=== PATIENT | female | born 1950 | race African-American/Black ===

== ENCOUNTER → 2020-03-11 | Day surgery (SDC) | payer MEDICARE ==
[2020-03-10 15:32] VITALS: BMI 40.1
[2020-03-11 08:16] VITALS: BP 159/98; TEMP 97.1
--- NOTE | 2020-03-11 09:18 | RAD ---
Lumbar spine myelogram: 03/11/2020 HISTORY: 69-year-old female with a history of lumbar radiculopathy and prior lower lumbar spine surge ry FINDINGS: Informed consent obtained prior to the procedure. [employer] imaging demonstrates a right L5 and S1 pedicle screw with a vertically oriented interlocking ro d. There is significant multilevel facet hypertrophy within the lower lumbar spine, most prominent at the L4-5 and L5-S1 level. There is anterolisthesis of L4 on L5 measuring 4 mm and of L3 on L4 arpit uring approximately 2-3 mm. No acute osseous abnormality. The patient was placed on the fluoroscopic table in the oblique prone position and skin overlying the L3-4 level was anesthetized with 1% buffered lidocaine. With intermittent fluoroscopic guidance, a 20-gauge spinal needle is advanced into the thecal sac and removal of the stylet yields clear cerebro spinal fluid. Subsequently, approximately 12 cc of Isovue 200 was injected, outlining nerve roots of the cauda equina and filling the thecal sac. Needle was removed. Patient tolerated the procedure w ell. Exposure data: 3.6 minutes fluoroscopic time, 1311.3 mcg/sq m IMPRESSION: Successful lumbar spine myelogram as detailed above.
--- NOTE | 2020-03-11 09:49 | CT ---
CT myelogram of the lumbar spine: 03/11/2020 HISTORY: Lumbar radiculopathy, back pain, prior lumbar spine surgery TECHNIQUE: Following the intrathecal administration of iodinated contrast media, axial CT imaging is obtained at 2.5 mm intervals from the lower thoracic spine through the lower sacrum. Coronal and sagittal reformatted imaging obtained. FINDINGS: On the basis of 5 lumbar type vertebral bodies, the conus medullaris terminates at the L1 l evel. There is minimal anterolisthesis at L3-4 measuring approximately 2-3 mm. There is anterolisthesis of L4 on L5 measuring approximately 4 mm. There is an adrenal lesion on the left measuring approximately 1.6 cm with Hounsfield units consisten t with an adrenal adenoma. There are degenerative changes involving bilateral sacroiliac joints. T12-L1: Minimal disc bulge. Significant bilateral facet hypertrophy. No significant central canal or neural foraminal stenosis. L1-2: Bilateral facet hypertrophy and hypertrophy of the ligamentum flavum noted. Mild bilateral neur al foraminal stenosis. No significant central canal stenosis. L2-3: There is prominent bilateral facet hypertrophy and hypertrophy of the ligamentum flavum. There is disc bulge as well. This causes a moderate/severe degree of central canal stenosis and prominent left lateral recess stenosis. There is also severe bilateral neural foraminal stenosis. L3-4: Minimal disc bulge. Prominent bilateral facet hypertrophy and hypertrophy of the ligamentum fla vum. Moderate central canal stenosis and moderate bilateral neural foraminal stenosis. L4-5: There is prominent bilateral facet hypertrophy with hypertrophy of the ligamentum flavum. There is mild disc bulge with a mild/moderate degree of central canal stenosis. Moderate/severe bilateral neural foraminal stenosis, left greater than right. L5-S1: L5 and S1 pedicle screw present on the right with a vertically oriented interlocking thuy. No e vidence for hardware failure is seen. There is disc space narrowing with degenerative endplate change and anterior osteophyte formation and vacuum disc formation. A disc osteophyte complex is pres ent. There is mild central canal stenosis and there is bilateral neural foraminal stenosis, moderate on the right and severe on the left. No worrisome lytic or blastic bone lesion. No acute fracture or evidence of dislocation. IMPRESSION: Significant multilevel degenerative change within the lumbar spine as detailed above.
== END ==
LOC: RAD 07:00 → EDSTATUS 08:00
PROVIDERS: ATTEND Neurological Surgery
PROC: B01B1ZZ Fluoroscopy of Spinal Cord using Low Osmolar Contrast (ICD-10-PCS; principal; 2020-03-11)
DX: M54.16 Radiculopathy, lumbar region (principal); M43.16 Spondylolisthesis, lumbar region; M48.061 Spinal stenosis, lumbar region without neurogenic claudication; E78.5 Hyperlipidemia, unspecified; I10 Essential (primary) hypertension; F32.9 Major depressive disorder, single episode, unspecified; K21.9 Gastro-esophageal reflux disease without esophagitis; M06.9 Rheumatoid arthritis, unspecified; Z79.899 Other long term (current) drug therapy; Z98.1 Arthrodesis status
CPT/HCPCS: 62304; 72132

== ENCOUNTER 2020-05-07 06:51 | Outpatient (CLI) | payer MEDICARE ==
[2020-05-07 11:34] LABS: Hemoglobin 11.6 g/dL (12.0-16.0); Mean Corpuscular HGB CONC 31.8 G/DL (32.0-36.0); Mean Corpuscular Hemoglobin 25.8 PG (27.0-33.0); Mean Corpuscular Volume 81.1 fl (80.0-100.0); Platelet Count 229 10x3/uL (130-400); White Blood Cell (WBC) Count 4.3 10x3/uL (4.5-11.0)
[2020-05-07 12:23] LABS: Anion Gap 14 mmol/L (10-20); BUN (Urea Nitrogen) 15 mg/dL (9.8-20.1); Calc. Creatinine Clearance 0 mL/min (70-130); Calcium 10.1 mg/dL (7.8-10.44); Carbon Dioxide 27 mmol/L (23-31); Chloride 105 mmol/L (98-107); Estimated GFR-MDRD 85; Glucose 98 mg/dL (80-115); Potassium 3.4 mmol/L (3.5-5.1); Sodium 143 mmol/L (136-145)
[2020-05-08 13:41] LABS: SARS-CoV-2 MS2 Positive; SARS-CoV-2 N Gene Negative; SARS-CoV-2 S Gene Negative; SARS-CoV-2 by NAA Not Detected (NotDetected); SARS-CoV-2 orf1ab Negative
--- NOTE | 2020-05-09 20:55 | EKG ---
Test Reason : Blood Pressure : / mmHG Vent. Rate : 069 BPM Atrial Rate : 069 BPM P-R Int : 148 ms QRS Dur : 076 ms QT Int : 414 ms P-R-T Axes : 068 051 022 degrees QTc Int : 443 ms Normal sinus rhythm Normal ECG Confirmed by Mya TAM ([id number]) on 05/09/2020 8:55:11 PM Referred By: DARRELL Confirmed By:Mya TAM
== END 2020-05-07 06:52 | disposition home or self-care (01) ==
LOC: LABBT 06:51
PROVIDERS: ATTEND Neurological Surgery
DX: Z01.818 Encounter for other preprocedural examination (principal); M48.062 Spinal stenosis, lumbar region with neurogenic claudication; Z20.828 Contact with and (suspected) exposure to other viral communicable diseases
CPT/HCPCS: 80048; 85027; 93005; U0003; 87635; 93010

== ENCOUNTER 2020-05-12 05:56 | Observation (INO) | payer MEDICARE ==
[2020-05-12] MEDS ORDERED: Fentanyl 100 MCG/2 ML VIAL ONE (06:33)
[2020-05-12] MEDS ORDERED: Lidocaine 2% Jelly 5 ML TUBE ONE (06:34)
--- NOTE | 2020-05-12 08:22 | OP ---
DATE OF PROCEDURE: 05/12/2020 DAMPENER OPERATOR: Richard. PROCEDURE PERFORMED: L2-L3 laminectomy. DESCRIPTION OF PROCEDURE: The patient intubated. She was rolled in a prone position on gel-filled chest rolls. An incision was made exposing L2 and L3 and the level was confirmed by x-ray. We performed complete L3 and inferior L2 laminectomy and completely decompressed the neural elements bilaterally. The wound was then extensively irrigated. MAC hemostasis was secured. Vancomycin powder was applied and the wound was closed in anatomic layers. Job ID: [id number]
[2020-05-12] MEDS ORDERED: Promethazine HCl 25 MG/ML VIAL SLOW IVP PRN (08:39)
[2020-05-12] MEDS ORDERED: Promethazine HCl 25 MG/ML VIAL IM PRN ×2 (08:39→09:30)
[2020-05-12] MEDS ORDERED: Ondansetron HCl/PF 4 MG/2 ML Vial IVP PRN (08:39)
[2020-05-12] MEDS ORDERED: Ondansetron PF 4 MG/2 ML Vial IM PRN (09:18)
[2020-05-12] MEDS ORDERED: PROPOFOL 200 MG/20 ML VIAL ONE (09:27)
[2020-05-12] MEDS ORDERED: Esmolol 100 MG/10 ML VIAL ONE (09:27)
[2020-05-12] MEDS ORDERED: PHENYLEPHRINE-NS 100 MCG/ML 10 ML SYRINGE ONE (09:27)
[2020-05-12] MEDS ORDERED: ePHEDrine 50 MG/ML VIAL ONE (09:27)
[2020-05-12] MEDS ORDERED: Glycopyrrolate 0.2 MG/ML 5 ML SYRINGE ONE (09:27)
[2020-05-12] MEDS ORDERED: Lidocaine 1% PF 5 ML VIAL ONE (09:27)
[2020-05-12] MEDS ORDERED: Ondansetron PF 4 MG/2 ML Vial ONE (09:27)
[2020-05-12] MEDS ORDERED: Rocuronium Bromide 10 MG/ML (10ML VIAL) ONE (09:27)
[2020-05-12] MEDS ORDERED: Dexamethasone 20 MG/5 ML VIAL ONE (09:27)
[2020-05-12] MEDS ORDERED: diphenhydrAMINE 50 MG/ML VIAL IVP PRN (09:30)
[2020-05-12] MEDS ORDERED: Morphine 2 MG/ML VIAL SLOW IVP PRN (09:30)
[2020-05-12] MEDS ORDERED: Promethazine 25 MG TAB PO PRN (09:30)
[2020-05-12] MEDS ORDERED: Morphine 4 MG/ML VIAL SLOW IVP PRN (09:30)
[2020-05-12] MEDS ORDERED: Milk Of Magnesia 30 ML UDCUP PO PRN (09:30)
[2020-05-12] MEDS ORDERED: Promethazine HCl 12.5 MG SUPP PR PRN (09:30)
[2020-05-12] MEDS ORDERED: Acetaminophen/Codeine 30-300mg Tablet PO PRN (09:30)
[2020-05-12] MEDS ORDERED: tiZANidine HCl 4 MG TAB PO PRN (09:30)
[2020-05-12] MEDS ORDERED: diphenhydrAMINE 25 MG CAP PO PRN (09:30)
[2020-05-12] MEDS ORDERED: Mag-Al 1200 mg/1200 mg/30 ML UDCUP PO PRN (09:30)
[2020-05-12] MEDS ORDERED: traMADol HCl 50 MG TAB PO PRN ×2 (09:30)
[2020-05-12 12:18] VITALS: BMI 38.7
[2020-05-12] MEDS: Sodium Chloride 0.9% 1,000 ML IV SCH ×2 (12:44→21:38)
[2020-05-12] MEDS: Acetaminophen/Codeine 30-300mg Tablet PO PRN (20:41)
[2020-05-12] MEDS ORDERED: Gabapentin 100 MG CAP PO SCH (21:00)
[2020-05-12] MEDS ORDERED: Atorvastatin Calcium 20 MG TAB PO SCH (21:00)
[2020-05-13 03:21] VITALS: BP 117/76; TEMP 98.7
--- NOTE | 2020-05-13 07:20 | DIS ---
DATE OF ADMISSION: 05/12/2020 DATE OF DISCHARGE: 05/13/2020 PROCEDURE: L2-L3 laminectomy. DISCHARGE SUMMARY: The patient is a 69-year-old female, recently evaluated in our office for progressive neurogenic claudication. She was found to have increased lumbar stenosis at L2-L3. She underwent L2-L3 laminectomy on 05/12/2020. Following surgery, she was transitioned to the Med-Surg floor, where her pain has been well controlled with p.o. medications, she is tolerating regular diet, and she is voiding appropriately. She did have some incisional drainage overnight, but there was not active drainage noted on am exam. We will plan to dismiss to home. I have discussed home care precautions. She has been provided scripts for Tylenol 3, tramadol, and Zanaflex. BMP were checked prior to discharge. Job ID: [id number] [facility]
[2020-05-13] MEDS: Acetaminophen/Codeine 30-300mg Tablet PO PRN (08:18)
[2020-05-13] MEDS ORDERED: Triamterene/Hydrochlorothiazide 37.5 mg/25 mg Tablet PO SCH (09:00)
[2020-05-13] MEDS ORDERED: Potassium Chloride 10 MEQ TAB PO SCH (09:00)
[2020-05-13] MEDS ORDERED: Multivit, Therapeutic 1 TAB PO SCH (09:00)
== END 2020-05-13 08:23 | disposition home or self-care (01) ==
LOC: SDC 05:56 → SURG B 09:41
PROVIDERS: ADMIT Neurological Surgery; ATTEND Neurological Surgery
PROC: 01NB0ZZ Release Lumbar Nerve, Open Approach (ICD-10-PCS; principal; 2020-05-12)
DX: M48.062 Spinal stenosis, lumbar region with neurogenic claudication (principal); M45.9 Ankylosing spondylitis of unspecified sites in spine; I10 Essential (primary) hypertension; E78.5 Hyperlipidemia, unspecified; F32.9 Major depressive disorder, single episode, unspecified; M06.9 Rheumatoid arthritis, unspecified; K21.9 Gastro-esophageal reflux disease without esophagitis; Z87.891 Personal history of nicotine dependence; Z79.899 Other long term (current) drug therapy
CPT/HCPCS: 63047; 76000; 96374; 97110; 97116 ×2; 97139 ×2; G0378 ×2; J0690; J1100; J1200; J2405; J2704; J3010; J3370; J3490